=== PATIENT | female | born 1985 | race African-American/Black ===

== ENCOUNTER 2016-06-30 15:36 | Emergency (ER) | payer SELFPAY ==
[~2016-06-30] VITALS: Ht 180.3 cm; Wt 77.8 kg
[~2016-06-30 15:36] MED LIST: METO100T9 PO
[2016-06-30 15:58] VITALS: BP 163/108; PULSE 81; RESP 16; TEMP 99.2; O2SAT 100
[2016-06-30] MEDS ORDERED: CYCL1TAB29 PO (17:10)
[2016-06-30] MEDS ORDERED: NAPR500T PO (17:10)
[2016-06-30] MEDS ORDERED: AMLO5TAB2 PO (17:10)
--- NOTE | 2016-06-30 17:11 | PD ---
HPI Chief Complaint: Musculoskeletal Complaint Time Seen by Provider: 17:10 Travel History International Travel<30 days: No Contact w/Intl Traveler<30days: No Traveled to known affect area: No History of Present Illness HPI 30-year-old female with history of hypertension presents to the emergency department for evaluation of right-sided neck pain and upper back pain for 2 days. Denies any injury or trauma to her neck or back. States that she thinks she slept the wrong way which is what has caused her pain. States that she has tightness and soreness in her neck that is aggravated with rotating her head side to side. Denies any fever, chills, nausea, vomiting, numbness or tingling , weakness, cough or cold symptoms. Patient has applied heat to the area, has not taken any medications so far. Patient is also requesting a medication refill for hypertension, admits that she has not followed up with her PCP in several months and is looking for a new PCP. No other complaints. PFSH Past Medical History Anxiety: Yes Diminished Hearing: No Hypertension: Yes Respiratory: Yes (HTN) ?: Not LMP: LAST WEEK PER PT Past Surgical History Surgical History: No Previous Surgery Social History Alcohol Use: Yes (OCC) Tobacco Use: No (NEVER) Substance Use: Yes (OCC MARIJUANA) Allergies-Medications (Allergen,Severity, Reaction): Uncoded Allergies: PROACTIVE (Adverse Reaction, Intermediate, EYES SWELLED., 06/30/16) Reported Meds & Prescriptions Reported Meds & Active Scripts Active Amlodipine (Amlodipine Besylate) 5 Mg Tab 5 Mg PO DAILY Naproxen 500 Mg Tab 500 Mg PO BID 7 Days Flexeril (Cyclobenzaprine HCl) 10 Mg Tab 10 Mg PO TID 5 Days Review of Systems Except as stated in HPI: all other systems reviewed are Neg Physical Exam Narrative GENERAL: Well-nourished and well-developed pleasant patient in no acute distress who is nontoxic appearing. SKIN: Warm and dry. HEAD: Normocephalic and atraumatic. EYES: No injection, drainage, or hyphema noted. PERRLA. EOMI. ENT: No nasal drainage noted. Oropharynx is clear. NECK: Supple and the trachea is midline. Tenderness to palpation along right trapezius muscles and right sternocleidomastoid muscle. No cervical spine tenderness to palpation. No meningeal signs. CARDIOVASCULAR: Regular rate and rhythm. RESPIRATORY: Breath sounds are equal bilaterally with no accessory muscle use, wheezing, rhonchi, or crackles. MUSCULOSKELETAL: No obvious deformities, swelling, cyanosis, or ecchymosis is present throughout the upper and lower extremities. Patient has full range of motion without any signs of neurovascular compromise. Strength 5/5 upper and lower extremities equal bilaterally. BACK: Nontender without any obvious deformities, bony point tenderness, or crepitus noted throughout the thoracic and lumbar vertebrae. NEUROLOGICAL: Awake, alert, and oriented. Normal speech and gait. Cranial nerves are grossly intact. Data Data Last Documented VS Vital Signs Date Time Temp Pulse Resp B/P Pulse Ox O2 Delivery O2 Flow Rate FiO2 06/30/16 15:58 99.2 81 16 163/108 100 MDM Medical Decision Making Medical Screen Exam Complete: Yes Emergency Medical Condition: Yes Differential Diagnosis Cervical strain versus torticollis versus muscle spasm versus medication refill Narrative Course 30-year-old female presents to the emergency department for evaluation of neck pain. Patient is afebrile. She is hypertensive with a blood pressure 163/108, she is admittedly noncompliant with her hypertensive medication, has been out of them for several months. Otherwise vital signs are stable. No focal neurologic deficits. The patient's pain is located over the trapezius muscles. No midline bony point tenderness. No red flag signs or symptoms therefore I feel no emergent imaging is indicated. She'll be given pressure patient's for naproxen and Flexeril. Discussed supportive care. I did review the EMR which she was previously on metoprolol 100 mg ER, the patient admits that this medication did make her feel "groggy." We'll start her on amlodipine 5 mg instead. Discussed importance of outpatient follow-up with a primary care provider. Patient verbalizes understanding and agreement with treatment plan. Diagnosis Primary Impression: Cervical strain, acute Qualified Code: S16.1XXA - Cervical strain, acute, initial encounter Additional Impression: Hypertension Qualified Code: I10 - Essential hypertension Referrals: Primary Care Physician Patient Instructions: Cervical Strain (ED), General Instructions, Hypertension (ED) Additional Instructions: Apply heat to help alleviate symptoms. Perform gentle stretches. Take medications as prescribed with food and a full glass of water. Do not take Flexeril with alcohol or driving. Follow-up with your Primary Care Physician. Return to the ED for any acute worsening of symptoms. Med/Other Pt SpecificInfo: Prescription(s) given Scripts Amlodipine 5 Mg Tab5 Mg PO DAILY #30 TAB Ref 0 Prov:Troy Madsen MD 06/30/16 Naproxen 500 Mg Ips223 Mg PO BID 7 Days Ref 0 Prov:Troy Madsen MD 06/30/16 Cyclobenzaprine (Flexeril)10 Mg Tab10 Mg PO TID 5 Days Ref 0 Prov:Troy Madsen MD 06/30/16 Disposition: 01 DISCHARGE HOME Condition: Stable Yasemin Hope Jun 30, 2016 17:11
== END 2016-06-30 17:24 | disposition home or self-care (01) ==
LOC: PHEFT 15:36
DX: S16.1XXA Strain of muscle, fascia and tendon at neck level, initial encounter (principal); I10 Essential (primary) hypertension; F41.9 Anxiety disorder, unspecified; Z91.19 Patient's noncompliance with other medical treatment and regimen; X50.1XXA Overexertion from prolonged static or awkward postures, initial encounter; X50.9XXA Other and unspecified overexertion or strenuous movements or postures, initial encounter; Y93.84 Activity, sleeping; Y92.9 Unspecified place or not applicable; Y99.9 Unspecified external cause status
CPT/HCPCS: 99283

== ENCOUNTER 2017-01-08 14:26 | Emergency (ER) | payer SELFPAY ==
[~2017-01-08] VITALS: Ht 180.3 cm; Wt 78.0 kg
[~2017-01-08 14:26] MED LIST changes: +AMLO5TAB2 PO; +CYCL1TAB29 PO; -METO100T9 PO; +NAPR500T PO
[2017-01-08 14:30] VITALS: BP 148/100; PULSE 86; RESP 16; TEMP 97.8; O2SAT 99
[2017-01-08] MEDS ORDERED: ORPHENADRINE INJ 60 MG/2 ML AMP IM ONE (15:15)
[2017-01-08] MEDS ORDERED: KETOROLAC TROMETHAMINE 60 MG/2 ML (IM) VIAL IM ONE (15:15)
--- NOTE | 2017-01-08 15:15 | PD ---
HPI Chief Complaint: Pain: Acute or Chronic Time Seen by Provider: 14:55 Travel History International Travel<30 days: No Contact w/Intl Traveler<30days: No Traveled to known affect area: No History of Present Illness HPI 31-year-old female presents to the emergency room for evaluation of left lower back pain radiating down the left lower extremity for the past week. Patient states she had some symptoms a week ago and they seemed to improve but worsened again 2 days ago. She was lifting a heavy box at work which is what her pain started. Denies any other trauma or injury. She took Aleve PM 2 days ago which helped her go to sleep but has not taken anything since then. Pain is worsened with any ambulation and range of motion of the left lower leg and the back. Localized to the left lower back with radiation to the right back and down her anterior leg. She denies paresthesias, saddle anesthesia, loss of bowel or bladder control, IV drug use, weight loss, and night sweats. PFSH Past Medical History Anxiety: Yes Cardiovascular Problems: Yes (HTN) Diminished Hearing: No Hypertension: Yes Respiratory: Yes (HTN) ?: Not LMP: 2 days ago Social History Alcohol Use: Yes (OCC) Tobacco Use: No (NEVER) Substance Use: Yes (OCC MARIJUANA) Allergies-Medications (Allergen,Severity, Reaction): Uncoded Allergies: PROACTIVE (Adverse Reaction, Intermediate, Eye swelling , 01/08/17) Reported Meds & Prescriptions Reported Meds & Active Scripts Active Amlodipine (Amlodipine Besylate) 5 Mg Tab 5 Mg PO DAILY Naproxen 500 Mg Tab 500 Mg PO BID 7 Days Flexeril (Cyclobenzaprine HCl) 10 Mg Tab 10 Mg PO TID 5 Days Review of Systems Except as stated in HPI: all other systems reviewed are Neg Physical Exam Narrative GENERAL: Well-nourished, well-developed female in no acute distress. Afebrile. SKIN: Focused skin assessment warm/dry. No erythema or ecchymosis. HEAD: Normocephalic. EYES: No scleral icterus. No injection or drainage. NECK: Supple, trachea midline. No JVD or lymphadenopathy. CARDIOVASCULAR: Regular rate and rhythm without murmurs, gallops, or rubs. RESPIRATORY: Breath sounds equal bilaterally. No accessory muscle use. MUSCULOSKELETAL: No cyanosis, or edema. 2+ dorsalis pedis pulse in the left. Full range of motion of the left lower extremity. BACK: No midline tenderness or obvious deformity. No CVA tenderness. Mild tenderness to palpation of the left lower paraspinous musculature. Strength 5/ 5 and equal in bilateral lower extremities. Data Data Last Documented VS Vital Signs Date Time Temp Pulse Resp B/P Pulse Ox O2 Delivery O2 Flow Rate FiO2 01/08/17 14:30 97.8 86 16 148/100 99 Orders Ketorolac Inj (Toradol Inj) (01/08/17 15:15) Orphenadrine Inj (Norflex Inj) (01/08/17 15:15) [facility] Medical Decision Making Medical Screen Exam Complete: Yes Emergency Medical Condition: Yes Medical Record Reviewed: Yes Differential Diagnosis Sciatica, back strain, fracture unlikely Narrative Course 31-year-old female presents to the emergency room for evaluation of left-sided low back pain with radiation into her left lower extremity for the past week. Patient states pain started after lifting a heavy box. It is worsened with range of motion. Physical exam reveals no midline tenderness or step-off deformity. Left lower extremity is neurovascularly intact with 2+ dorsalis pedis pulse. Full range of motion of the back and legs. No focal neurological deficits noted. No red flag symptoms. No indication for imaging at this time. Patient was given Toradol and Norflex in the emergency room and discharged with prescriptions for ibuprofen and Robaxin. Follow up with a primary care physician and return for worsening symptoms. She understands and agrees to plan. Diagnosis Primary Impression: Low back strain Qualified Code: S39.012A - Low back strain, initial encounter Referrals: Primary Care Physician Patient Instructions: Acute Low Back Pain (ED), General Instructions Additional Instructions: Rest and drink plenty of fluids. Take Robaxin as directed, as needed for pain. Take ibuprofen with food as directed, as needed for pain. Apply ice to the affected area for 20 minutes at a time, as needed for pain and swelling. Follow-up with a primary care physician. Return to the emergency room for worsening symptoms. Med/Other Pt SpecificInfo: Prescription(s) given Disposition: 01 DISCHARGE HOME Condition: Stable Kellee Garcia Jan 08, 2017 15:15
[2017-01-08] MEDS ORDERED: ROBA750T PO (15:16)
[2017-01-08] MEDS ORDERED: IBUP-232 PO (15:16)
== END 2017-01-08 15:30 | disposition home or self-care (01) ==
LOC: PHEFT 14:26
DX: S39.012A Strain of muscle, fascia and tendon of lower back, initial encounter (principal); M79.605 Pain in left leg; I10 Essential (primary) hypertension; Z86.59 Personal history of other mental and behavioral disorders; Z87.09 Personal history of other diseases of the respiratory system; X50.0XXA Overexertion from strenuous movement or load, initial encounter; Y99.0 Civilian activity done for income or pay
CPT/HCPCS: 96372; 99284; J1885; J2360

== ENCOUNTER 2017-09-20 10:21 | Emergency (ER) | payer SELFPAY ==
[~2017-09-20] VITALS: Ht 180.3 cm; Wt 77.5 kg
[~2017-09-20 10:21] MED LIST changes: +CYCL10TA PO; -CYCL1TAB29 PO; +IBUP-232 PO; -NAPR500T PO; +NAPR500T2 PO; +ROBA750T PO
[2017-09-20 10:29] VITALS: BP 161/118; PULSE 86; RESP 16; TEMP 99.1; O2SAT 99
[2017-09-20 11:32] VITALS: BP 174/114
[2017-09-20] MEDS ORDERED: AMLO5TAB2 PO (11:41)
[2017-09-20] MEDS ORDERED: AUGM875T3 PO (11:41)
--- NOTE | 2017-09-20 11:46 | PD ---
HPI Chief Complaint: Cold / Flu Symptoms Time Seen by Provider: 11:26 Travel History International Travel<30 days: No Contact w/Intl Traveler<30days: No Traveled to known affect area: No History of Present Illness HPI 31-year-old female with history of hypertension presents to the emergency room for evaluation of cold symptoms for the past week. Patient states 3 weeks ago she was sick for about a week than she had a week break, then she got sick again about a week ago. The first time she got sick she reports of fever and chills but denies any fever since then. She has been taking multiple over-the- counter medications without relief in symptoms. Symptoms include body aches, headache, nasal congestion, sore throat, nonproductive cough, and ear fullness. She states she has been out of her hypertension medication for a few years because she does not have the money to see a doctor. PFSH Past Medical History Anxiety: Yes Cardiovascular Problems: Yes (htn out of meds) Diminished Hearing: No Hypertension: Yes Respiratory: Yes (HTN) Immunizations Current: Yes Tetanus Vaccination: > 5 Years Influenza Vaccination: No ?: Not LMP: 09/14/17 Past Surgical History Surgical History: No Previous Surgery Social History Alcohol Use: Yes (OCC) Tobacco Use: No (NEVER) Substance Use: Yes (pot alot) Allergies-Medications (Allergen,Severity, Reaction): Uncoded Allergies: PROACTIVE (Adverse Reaction, Intermediate, Eye swelling , 01/08/17) Reported Meds & Prescriptions Reported Meds & Active Scripts Active Amlodipine (Amlodipine Besylate) 5 Mg Tab 5 Mg PO DAILY Review of Systems Except as stated in HPI: all other systems reviewed are Neg Physical Exam Narrative GENERAL: Well-nourished, well-developed female in no acute distress. Afebrile. Ambulatory. SKIN: Focused skin assessment warm/dry. HEAD: Normocephalic. EYES: No scleral icterus. No injection or drainage. ENT: Mucosa pink and moist. Mild to moderate erythema and edema without exudates. No uvular edema. No uvular, palatal, or tonsillar deviation. Airway patent. Nasal turbinates appear normal without nasal blood, purulent drainage or septal hematoma. EARS: Bilateral pinnae and external canals appear within normal limits. Bilateral tympanic membranes without erythema, dullness or perforation. NECK: Supple, trachea midline. No JVD or lymphadenopathy. CARDIOVASCULAR: Regular rate and rhythm without murmurs, gallops, or rubs. RESPIRATORY: Breath sounds equal bilaterally. No accessory muscle use. No crackles, rales, wheezes, or rhonchi. Data Data Last Documented VS Vital Signs Date Time Temp Pulse Resp B/P (MAP) Pulse Ox O2 Delivery O2 Flow Rate FiO2 09/20/17 11:32 174/114 (134) 09/20/17 11:27 8 99 Room Air 09/20/17 10:29 99.1 86 MDM Medical Decision Making Medical Screen Exam Complete: Yes Emergency Medical Condition: Yes Medical Record Reviewed: Yes Differential Diagnosis Sinusitis, URI, pneumonia, bronchitis Narrative Course 31-year-old female with history of hypertension presents to the emergency room for evaluation of cold symptoms that started 1 week ago. Patient was sick 3 weeks ago and got better for one week then the symptoms returned. Physical exam is reassuring. Given duration and double worsening of symptoms, she will be treated for bacterial sinusitis. She was noted to be incidentally hypertensive in the emergency room and has been out of her medication for several months. Her medication was refilled and she was referred to [facility]. Told to return for worsening symptoms. She understands and agrees to plan. Diagnosis Primary Impression: Sinusitis Qualified Codes: J01.10 - Acute frontal sinusitis, unspecified Additional Impression: Hypertension Qualified Codes: I10 - Essential (primary) hypertension Referrals: [facility] Additional Instructions: Rest and drink plenty of fluids. Take Augmentin as directed, until gone. Take amlodipine as directed, until gone. Follow up with a primary care physician. Return to emergency room for worsening symptoms, as discussed. Med/Other Pt SpecificInfo: Prescription(s) given Scripts Amoxicillin-Clavulanate (Augmentin) 875-125 Mg Tab 1 TAB PO BID for Infection, #14 TAB 0 Refills Prov: Elise Perez DO 09/20/17 Amlodipine (Amlodipine) 5 Mg Tab 5 MG PO DAILY for Blood Pressure Management, #30 TAB 0 Refills Prov: Elise Perez DO 09/20/17 Disposition: 01 DISCHARGE HOME Condition: Stable Kellee Garcia Sep 20, 2017 11:46
[2017-09-20 11:59] VITALS: BP 164/108
== END 2017-09-20 11:59 | disposition home or self-care (01) ==
LOC: PHED 10:21 → PHEFT 11:59
DX: J01.10 Acute frontal sinusitis, unspecified (principal); I10 Essential (primary) hypertension; F41.9 Anxiety disorder, unspecified; F12.90 Cannabis use, unspecified, uncomplicated
CPT/HCPCS: 99283